=== PATIENT | female | born 1930 | race Caucasian/White ===

== ENCOUNTER 2016-10-16 13:11 | Emergency (ER) | payer MEDICARE ==
[2016-10-16 14:45] LABS: APPEARANCE,URINE CLEAR (CLEAR); COLOR,URINE YELLOW (YELLOW); OCCULT BLOOD,URINE TRACE-INTACT (NEGATIVE); UROBILINOGEN URINE 0.2 Eu (0.2-1.0)
[2016-10-16 14:45] LABS: BASOPHILS % 0.1 (0.0-1.5); EOSINOPHILS % 0.6 % (0.0-6.8); LYMPHOCYTES # 0.6 # k/uL (0.6-4.0); MEAN CORPUSCULAR HEMOGLOBIN 25.9 pg (28.0-34.0); MONOCYTES # 0.4 # k/uL (0.0-0.9); MONOCYTES % 4.8 % (0.0-11.0); NEUTROPHILS # 7.4 # k/uL (1.4-7.7)
[2016-10-16 15:01] LABS: eGFR (African) > 60; eGFR (Non-African) > 60
--- NOTE | 2016-10-16 15:23 | ED Physician Documentation ---
Dyspnea - HISTORIAN Historian: patient - HPI Stated Complaint: cough, congestion, SOA Chief Complaint: Dyspnea Onset: days ago (3) Duration: continues in ED Initiating Event: upper respiratory illness Severity: moderate Exacerbated By: exertion, coughing Associated Symptoms: chest discomfort. denies: chills, fever Further Comments: yes (86 year old female patient presents with complaints of cough, SOB with exerction and chest discomfort with coughing for the past 3 days, states her ankles are swollen "they are always like that".) - ROS CONST: weakness EYES/ENT: nasal congestion GI/: denies: abdominal pain, vomiting, nausea, diarrhea, black stools NEURO/PSYCH: headache MS/SKIN/LYMPH: none - PAST HX Lung Disease: none PE Risk Factors: hypertension Surgeries/Procedures: hysterectomy, other (tonsilectomy, ) Other History: other (Hx of Breast cancer, GERD, OA, AV malformation, c-spine fracture) Allergies/Adverse Reactions: Allergies Allergy/AdvReac Type Severity Reaction Status Date / Time iodine [Iodine] Allergy Intermediate Rash Verified 10/16/16 14:07 Penicillins Allergy Intermediate Rash Verified 10/16/16 14:07 prednisone Allergy Intermediate Chest Pain Verified 10/16/16 14:07 Home Medications: Ambulatory Orders Medication Instructions Recorded Benazepril HCl [Benazepril HCl] 40 mg PO DAILY 07/04/16 Celecoxib [Celecoxib] 200 mg PO DAILY 07/04/16 Hydrochlorothiazide 25 mg PO DAILY 07/04/16 [Hydrochlorothiazide] Omeprazole [Omeprazole] 20 mg PO BID 07/04/16 Tramadol HCl [Ultram] 50 mg PO TID 07/04/16 Ergocalciferol (Vitamin D2) 50,000 unit PO WEEKLY AT 1600 08/14/16 [Vitamin D-2] Oxycodone HCl [Oxycodone HCl] 5 mg PO PRN PRN 08/14/16 - SOCIAL HX Smoking History: non-smoker - FAMILY HX Family History: denies: none - VITAL SIGNS Vital Signs: Vital Signs Temp Pulse Resp BP Pulse Ox 98.2 F 84 18 132/75 96 10/16/16 13:30 10/16/16 13:30 10/16/16 13:30 10/16/16 13:30 10/16/16 13:30 - REVIEWED ASSESSMENTS Nursing Assessment Reviewed: Yes Vitals Reviewed: Yes Progress - Progress Progress: Patient in C-collar, C2 fracture 1530 Reviewed lab findings with patient and daughter. Additional orders added. Patient reports no history of CHF, has never had an echo-cardiogram. Recommended transfer for cardiac evaluation and treatment of CHF. Patient requested [facility]. Call to [facility]. - EKG/XRAY/CT EKG: rhythm (SR, rate 90) - Consult/PCP Time Called: 15:38 Consult/PCP: patient accepted by Dr Freitas ED Results Lab/Radiology - Lab Results Lab Results: Lab Results 10/16/16 10/16/16 10/16/16 14:10 14:10 13:18 WBC 8.60 K/ul K/ul (4.00-12.00) RBC 3.42 M/ul L M/ul (3.90-5.20) Hgb 8.9 g/dL L g/dL (12.0-16.0) Hct 28.9 % L % (34.5-46.5) MCV 84.4 fl fl (80.0-100.0) MCH 25.9 pg L pg (28.0-34.0) MCHC 30.7 g/dL g/dL (30.0-36.0) RDW 14.1 % % (11.3-14.3) Plt Count 300 K/mm3 K/mm3 (130-400) Neut % (Auto) 86.1 % H % (39.0-79.0) Lymph % (Auto) 7.4 % L % (16.0-50.0) [place] % (Auto) 4.8 % % (0.0-11.0) Eos % (Auto) 0.6 % % (0.0-6.8) Baso % (Auto) 0.1 (0.0-1.5) Neut # 7.4 # k/uL # k/uL (1.4-7.7) Lymph # 0.6 # k/uL # k/uL (0.6-4.0) [place] # 0.4 # k/uL # k/uL (0.0-0.9) Eos # 0.0 # k/uL # k/uL (0.0-0.6) Baso # 0.0 # k/uL # k/uL (0.0-0.5) Reactive Lymphs % 1.0 % % (0.0-5.0) Reactive Lymphs # 0.1 # k/uL # k/uL (0.0-0.8) Sodium 131 mmol/L L mmol/L (136-145) Potassium 4.7 mmol/L mmol/L (3.5-5.0) Chloride 97 mmol/L L mmol/L (98-110) Carbon Dioxide 26 mmol/L mmol/L (20-32) BUN 42 mg/dL H mg/dL (10-26) Creatinine 1.2 mg/dL mg/dL (0.4-1.5) Estimated Creat Clear 35 Est GFR ( Amer) > 60 (60 - ) Est GFR (Non-Af Amer) > 60 (60 - ) Glucose 136 mg/dL H mg/dL (70-99) Calcium 9.6 mg/dL mg/dL (8.5-10.5) Total Bilirubin 0.5 mg/dL mg/dL (0.2-1.2) AST 17 U/L U/L (0-41) ALT 21 U/L U/L (0-45) Alkaline Phosphatase 72 U/L U/L (46-116) Total Protein 6.5 g/dL g/dL (6.0-8.5) Albumin 4.1 g/dL g/dL (3.0-5.5) Urine Color Yellow (YELLOW) Urine Appearance Clear (CLEAR) Urine pH 5.0 (5.0 - 8.0) Ur Specific [place] <=1.005 L (1.010-1.030) Urine Protein Negative mg/dL mg/dL (NEGATIVE) Urine Ketones Negative mg/dL mg/dL (NEGATIVE) Urine Occult Blood Trace-intact H (NEGATIVE) Urine Nitrite Negative (NEGATIVE) Urine Bilirubin Negative (NEGATIVE) Urine Urobilinogen 0.2 Eu Eu (0.2-1.0) Ur Leukocyte Esterase Trace H (NEGATIVE) Urine Glucose Negative mg/dL mg/dL (NEGATIVE) Influenza A (Rapid) Negative (NEGATIVE) Influenza B (Rapid) Negative (NEGATIVE) - Radiology Radiology Impressions: 2 views the chest Clinical history: Cough Findings: The heart size is mildly enlarged. There is left basilar atelectasis and/or infiltrate with a possible small left pleural effusion. There is air trapping. There is a question nodular density in the right lower lobe. Comparison to prior is recommended. No pneumothorax. Impression: 1. Left basilar atelectasis and/or infiltrate with a questionable very small left pleural effusion. 2. Question right lower lobe nodular density. Comparison to prior recommended. - Orders Orders: ED Orders Category Date Time Status CHEST P.A.&LAT 2 VIEWS [RAD] Stat Exams 10/16/16 Ordered BNP [NT-proBNP] Stat Lab 10/16/16 15:05 Received CBC/PLATELET/DIFF Stat Lab 10/16/16 14:10 Completed CMP Stat Lab 10/16/16 14:10 Completed INFLUENZA A&B Routine Lab 10/16/16 13:18 Completed UA MACRO DIP ONLY Routine Lab 10/16/16 13:18 Completed Dyspnea Physical Exam - EXAM General Appearance: moderate distress EENT: eye inspection normal, ENT inspection normal, pharynx normal, no signs of dehydration, ALEJA, no nystagmus, TM's nml Respiratory: no resp. distress, no pain on inspiration, speaks full sentences, decreased air movement (bases) CVS: reg. rate & rhythm, no gallop, no friction rub, pulses full, pulses equal Abdomen: non-tender, no organomegaly, no distention, no ascites Skin: color nml, no rash, warm, nml palp., dry Extremities: non-tender, normal range of motion, no evidence of injury, edema (3 + left, 2+ right) Neuro/Psych: oriented x3, CN's nml as tested, motor nml, sensation nml, mood/ affect nml Discharge Clincal Impression: Elevated troponin I level CHF (congestive heart failure) Qualifiers: Congestive heart failure type: unspecified congestive heart failure type Congestive heart failure chronicity: acute Qualified Code(s): I50.9 - Heart failure, unspecified Anemia Qualifiers: Anemia type: unspecified type Qualified Code(s): D64.9 - Anemia, unspecified Referrals: Abdiaziz Llanes MD [Primary Care Provider] - 2 Days Home Medications: Ambulatory Orders Benazepril HCl [Benazepril HCl] 40 mg PO DAILY 07/04/16 Celecoxib [Celecoxib] 200 mg PO DAILY 07/04/16 Hydrochlorothiazide [Hydrochlorothiazide] 25 mg PO DAILY 07/04/16 Omeprazole [Omeprazole] 20 mg PO BID 07/04/16 Tramadol HCl [Ultram] 50 mg PO TID 07/04/16 Ergocalciferol (Vitamin D2) [Vitamin D-2] 50,000 unit PO WEEKLY AT 1600 Oxycodone HCl [Oxycodone HCl] 5 mg PO PRN PRN 08/14/16 Condition: Fair Disposition: XFER SHT-TRM HOSP Decision to Admit: NO Decision Time: 15:56
[2016-10-16] MEDS ORDERED: FUROSEMIDE 40 MG/4 ML VIAL IVP ONE (15:33)
[2016-10-16] MEDS ORDERED: ASPIRIN 81 MG CHEW TAB PO ONE (16:09)
[2016-10-16] MEDS ORDERED: ASPIRIN 81 MG CHEW TAB ONE (16:10)
[2016-10-16 16:21] VITALS: BP 135/87
--- NOTE | 2016-10-16 18:28 | Diagnostic Imaging Report ---
~ [facility] [address] [facility].[address] [address] ~ ~ ~ ~ Report Submission Date: Oct 16, 2016 3:00:08 PM SR. OPERATIONS MANAGER Patient ~ Study Name: JACK VIVAR ~ Date: Oct 16, 2016 2:34:40 PM SR. OPERATIONS MANAGER ~ Modality Type: CR Gender: F ~ Description: CHEST : [birth year] ~ Institution: [facility] Physician: TORRES SOLIS ~ ~ ~ ~ 2 views the chest Clinical history: Cough Findings: The heart size is mildly enlarged. There is left basilar atelectasis and/or infiltrate with a possible small left pleural effusion. There is air trapping. There is a question nodular density in the right lower lobe. Comparison to prior is recommended. No pneumothorax. Impression: 1. Left basilar atelectasis and/or infiltrate with a questionable very small left pleural effusion. 2. Question right lower lobe nodular density. Comparison to prior recommended. ~ Electronically signed on Oct 16, 2016 3:00:08 PM SR. OPERATIONS MANAGER by: Gennaro LUDWIG
== END 2016-10-16 16:19 | disposition short-term general hospital (02) ==
LOC: ED 13:11
DX: I50.9 Heart failure, unspecified (principal); D64.9 Anemia, unspecified
CPT/HCPCS: 71020; 80053; 81002; 82550; 83880; 84484; 85025; 87400; J1940; 99283; 99284; S1016

== ENCOUNTER 2016-12-18 09:19 | Emergency (ER) | payer MEDICARE ==
--- NOTE | 2016-12-18 10:15 | Diagnostic Imaging Report ---
[facility] [address] [facility].[address] [address] Report Submission Date: Dec 18, 2016 10:07:02 AM CDT Patient Study Name: JACK VIVAR Date: Dec 18, 2016 9:52:06 AM CDT Modality Type: CR Gender: F Description: CHEST : [birth year] Institution: [facility] Physician: WAQAR LAYNE - ER 2 views the chest Clinical history: Short of breath Findings: Heart size is mildly enlarged. There is unchanged scarring in the lung bases. No pleural effusion, pneumothorax or alveolar consolidation. Impression: No acute disease in the chest Electronically signed on Dec 18, 2016 10:07:02 AM CDT by: Gennaro LUDWIG
[2016-12-18] MEDS ORDERED: cefTRIAXone SODIUM 1 GM VIAL IM ONE (10:42)
[2016-12-18] MEDS ORDERED: BENZONATATE 100 MG CAPSULE PO ONE (10:42)
[2016-12-18] MEDS ORDERED: Lidocaine 1% 5ml(IM or SUTURE)(PAIN CLINIC) IJ ONE (10:43)
--- NOTE | 2016-12-18 10:48 | ED Physician Documentation ---
Upper Respiratory Symptoms - HISTORIAN Historian: patient - HPI Stated Complaint: cough, shortness of breath Chief Complaint: Cough/ Upper Respiratory Additional Information: nonproductive cough, no fever, x 1 week Onset: days ago (7) Duration: sudden-Onset Context: denies: recent foreign travel, insect bite(s), tick(s), recent chemotherapy, multiple patients, same sx Severity: moderate Associated Symptoms: other (blood left nare). denies: fever, chills, sweating, earache, runny nose, sinus pain, sinus drainage, sore throat, hoarseness, allergy, hay fever, chest pain, bloody cough, productive cough, shortness of breath, hurts to breathe, headache Worsened by Deep Breath: Yes Further Comments: no - ROS CONST/EYES: denies: weakness, eye redness, eye itching CVS/RESP: other (dry cough) LYMPH: leg swelling (chronic problem for this pt.) GI/: denies: abdominal pain, problems urinating, vomiting, nausea, diarrhea, black stools NEURO/PSYCH: denies: fainting, dizziness, confusion, anxiety, depression MS/SKIN: denies: joint pain, muscle aches, rash - PAST HX Lung Disease: none PE Risk Factors: none Other History: CHF, hypertension, other (acute GA, CAD, GERD) Surgeries/Procedures: cardiac stent Immunizations: referred to PCP Allergies/Adverse Reactions: Allergies Allergy/AdvReac Type Severity Reaction Status Date / Time iodine [Iodine] Allergy Intermediate Rash Verified 12/18/16 09:53 Penicillins Allergy Intermediate Rash Verified 12/18/16 09:53 prednisone Allergy Intermediate Chest Pain Verified 12/18/16 09:53 Home Medications: Ambulatory Orders Medication Instructions Recorded Benazepril HCl [Benazepril HCl] 20 mg PO DAILY 07/04/16 Omeprazole [Omeprazole] 20 mg PO BID 07/04/16 Tramadol HCl [Ultram] 50 mg PO TID 07/04/16 Ergocalciferol (Vitamin D2) 50,000 unit PO WEEKLY AT 1600 08/14/16 [Vitamin D-2] Atorvastatin Calcium 80 mg PO 12/18/16 Benazepril HCl [Lotensin] 20 mg PO 12/18/16 Benzonatate [Tessalon] 200 mg PO TID #20 capsule 12/18/16 Cephalexin [Keflex] 1,000 mg PO BID #30 capsule 12/18/16 Cyclobenzaprine HCl [Flexeril] 5 mg PO QD 12/18/16 Furosemide [Lasix] 20 mg PO DAILY 12/18/16 Furosemide [Lasix] 20 mg PO PRN PRN 12/18/16 Guaifenesin [Mucinex] 600 12/18/16 Metoprolol Succinate [Toprol XL] 25 mg PO 12/18/16 Omeprazole [Prilosec] 20 mg PO 12/18/16 Polyethylene Glycol 3350 [Miralax] 17 gm PO 1100 12/18/16 Ticagrelor [Brilinta] 90 mg PO 12/18/16 - SOCIAL HX Smoking History: non-smoker Alcohol Use: none Drug Use: none - FAMILY HX Family History: no significant history - VITAL SIGNS Vital Signs: Vital Signs Temp Pulse Resp BP Pulse Ox 97.9 F 86 18 154/59 97 12/18/16 09:33 12/18/16 09:33 12/18/16 09:33 12/18/16 09:33 12/18/16 09:33 - REVIEWED ASSESSMENTS Nursing Assessment Reviewed: Yes Vitals Reviewed: Yes Progress - Results/Orders Results/Orders: cxr ordered - Progress Progress: pt. given 1 gram rocephin im and 200 mg tessalon perle p.o. in er Critical Care Note - Critical Care Note Total Time (mins): 0 ED Results Lab/Radiology - Lab Results Lab Results: none ordered - Radiology Radiology Impressions: cxr neg - Orders Orders: ED Orders Category Date Time Status CHEST 2 VIEW [CHEST P.A.&LAT 2 VIEWS] [RAD] Stat Exams 12/18/16 Completed Benzonatate [Tessalon] Med 12/18/16 10:42 Discontinued 200 mg PO NOW ONE Lidocaine 1% 5ml(IM or SUTURE) [Xylocaine] Med 12/18/16 10:43 Discontinued 50 mg IJ NOW ONE cefTRIAXone SODIUM [Rocephin] Med 12/18/16 10:42 Discontinued 1 gm IM NOW ONE Upper Respiratory Symptoms - EXAM General Appearance: alert, moderate distress EENT: eyes nml inspection, nml ENT inspection, lids & conjunct. nml, PERRL, ear nml Neck: normal inspection, thyroid normal, supple Respiratory: no resp. distress, speaks full sentences, rales (bases) Abdomen: non-tender, no organomegaly, nml bowel sounds, no distention CVS: reg rate & rhythm, heart sounds normal, equal pulses, no murmur Skin: color nml, no rash, warm,dry Extremities: non-tender, normal range of motion, no evidence of injury Neuro/Psych: oriented x3, neuro intact, mood/affect nml Discharge Clincal Impression: Bronchitis Prescriptions: Benzonatate [Tessalon] 200 mg PO TID #20 capsule Cephalexin [Keflex] 1,000 mg PO BID #30 capsule Referrals: Abdiaziz Llanes MD [Primary Care Provider] - 2 Days Home Medications: Ambulatory Orders Benazepril HCl [Benazepril HCl] 20 mg PO DAILY 07/04/16 Omeprazole [Omeprazole] 20 mg PO BID 07/04/16 Tramadol HCl [Ultram] 50 mg PO TID 07/04/16 Ergocalciferol (Vitamin D2) [Vitamin D-2] 50,000 unit PO WEEKLY AT 1600 Atorvastatin Calcium 80 mg PO 12/18/16 Benazepril HCl [Lotensin] 20 mg PO 12/18/16 Benzonatate [Tessalon] 200 mg PO TID #20 capsule 12/18/16 Cephalexin [Keflex] 1,000 mg PO BID #30 capsule 12/18/16 Cyclobenzaprine HCl [Flexeril] 5 mg PO QD 12/18/16 Furosemide [Lasix] 20 mg PO DAILY 12/18/16 Furosemide [Lasix] 20 mg PO PRN PRN 12/18/16 Guaifenesin [Mucinex] 600 12/18/16 Metoprolol Succinate [Toprol XL] 25 mg PO 12/18/16 Omeprazole [Prilosec] 20 mg PO 12/18/16 Polyethylene Glycol 3350 [Miralax] 17 gm PO 1100 12/18/16 Ticagrelor [Brilinta] 90 mg PO 12/18/16 Comments: medications as above Condition: Stable Disposition: 01 HOME, SELF-CARE Decision to Admit: NO Decision Time: 10:45
[2016-12-18 11:43] VITALS: BP 157/74
== END 2016-12-18 11:41 | disposition home or self-care (01) ==
LOC: ED 09:19
DX: J20.9 Acute bronchitis, unspecified (principal)
CPT/HCPCS: 71020; A9270; J0696; 96372; 99283

== ENCOUNTER 2016-12-28 12:34 | Inpatient (IN) | payer MEDICARE ==
[2016-12-28] MEDS ORDERED: ACETAMINOPHEN 325 MG TABLET PO PRN (13:28)
[2016-12-28] MEDS ORDERED: SALINE FLUSH 10 ML DISP.SYRIN IVF ONE ×2 (13:39→21:40)
[2016-12-28] MEDS: ENOXAPARIN SODIUM 30 MG/0.3 ML DISP.SYRIN SQ SCH (13:42)
[2016-12-28 14:04] LABS: BASOPHILS % 0.7 (0.0-1.5); EOSINOPHILS % 3.4 % (0.0-6.8); LYMPHOCYTES # 0.6 # k/uL (0.6-4.0); MEAN CORPUSCULAR HEMOGLOBIN 26.1 pg (28.0-34.0); MONOCYTES # 0.4 # k/uL (0.0-0.9); MONOCYTES % 4.8 % (0.0-11.0); NEUTROPHILS # 5.9 # k/uL (1.4-7.7)
[2016-12-28] MEDS: 0.9 % SODIUM CHLORIDE 1,000 ML IV SCH (14:07)
[2016-12-28 14:14] VITALS: BMI 23.5
--- NOTE | 2016-12-28 14:30 | Diagnostic Imaging Report ---
[facility] [address] [address] [facility] [address] [place] [address]. [id number] Report Submission Date: Dec 28, 2016 2:23:48 PM CDT Patient Study Name: JACK VIVAR Date: Dec 28, 2016 2:06:14 PM CDT Modality Type: CR Gender: F Description: CHEST : [birth year] Institution: [facility] Physician: [facility] Chest two views HISTORY: Cough and hypoxia FINDINGS: Cardiomegaly, pulmonary vascular congestion, low lung volumes, atherosclerosis, old right rib fracture deformities, advanced left shoulder arthropathy, and right axillary surgical clips are observed. Mild pulmonary edema cannot be excluded but the exam is limited by poor inspiratory effort. IMPRESSION: Suspect mild congestive heart failure. However, the exam is limited by poor inspiratory effort. Lung aeration has worsened since 12/18/2016. Electronically signed on Dec 28, 2016 2:23:48 PM CDT by: Myke LUDWIG
[2016-12-28] MEDS ORDERED: 0.9 % SODIUM CHLORIDE 250 ML IV ONE (15:46)
[2016-12-28] MEDS: IPRATROPIUM/ALBUTEROL SULFATE 3 ML AMPUL.NEB NEB SCH ×2 (15:57→21:11)
[2016-12-28] MEDS ORDERED: ACETAMINOPHEN 325 MG TABLET PO ONE (17:03)
[2016-12-28] MEDS ORDERED: diphenhydrAMINE HCL 25 MG TABLET PO ONE (17:03)
[2016-12-28] MEDS: ATORVASTATIN CALCIUM 80 MG TABLET PO SCH (19:08)
[2016-12-28] MEDS: BRILINTA 90 MG PO SCH (19:08)
--- NOTE | 2016-12-28 20:09 | History and Physical Report ---
History of Present Illnes - History of Present Illness Reason for Visit: Dyspnea, cough History of Present Illness: This is an 86 year old female who presented to my office today with c/o cough/ dyspnea and a remarkable pallor. She has not noted any blood in her stools. She was seen in the office this last week, but she has not improved despite antibiotics. She has felt more and more weak and dyspneic with exertion. She denies any chest pain. It is of note that she had a stent placed about a month ago at [facility] due to an LAD stenosis. She had good post stent placement flow, but was not convinced that she felt much better. She has been on Brillinta since the stent was placed. - Past Medical History Cardiac: HTN BOND TRADER: Other (Carpal tunnel syndrome) Gastrointestinal: GERD Heme/Onc: Cancer (Breast) Musculoskeletal: Chronic low back pain (due to spinal stenosis), Osteoarthritis , Other (osteopenia) - Past Surgical History Past Surgical History: , Hysterectomy, Mastectomy, Tonsillectomy, Other (Carpal tunnel injection, lumbar JOSEFINA, PCI with stent) - Past Social History Smoke: No Alcohol: None Drugs: None Lives: Alone Domestic Violence: Negative - Health Maintenance Health Maintenance: Cholesterol Influenza Vaccine: Current for this Influenza Season Pneumonia Vaccine: Yes Resuscitation Status: Resusciation Status Resuscitation Status Full Code - Unable to Obtain History Unable to Obtain: No Review of Systems - Review of Systems Constitutional: Weakness, Malaise. negative: Fever, Chills, Sweats Eyes: negative: pain ENT: negative: Ear Pain, Ear Discharge Respiratory: Cough, Shortness of Breath, SOB with Excertion. negative: Hemoptysis Cardiovascular: negative: Chest Pain, Palpitations Gastrointestinal: negative: Nausea, Vomiting, Abdominal Pain Genitourinary: negative: Dysuria, Frequency Musculoskeletal: negative: Neck Pain, Shoulder Pain Skin: Other (Pallor). negative: Rash, Lesions, Jaundice Neurological: Weakness. negative: Confusion - Medications/Allergies Allergies/Adverse Reactions: Allergies Allergy/AdvReac Type Severity Reaction Status Date / Time iodine [Iodine] Allergy Intermediate Rash Verified 12/18/16 09:53 Penicillins Allergy Intermediate Rash Verified 12/18/16 09:53 prednisone Allergy Intermediate Chest Pain Verified 12/18/16 09:53 Current Inpatient Medications: Current Inpatient Medications Acetaminophen (Tylenol) 650 mg PO Q4H PRN PRN Reason: Fever >101 Acetaminophen (Tylenol) 650 mg PO PREMED ONE Stop: 12/28/16 17:04 Last Admin: 12/28/16 17:16 Dose: 650 mg Albuterol/Ipratropium (Duoneb) 3 ml NEB QID [facility] Last Admin: 12/28/16 15:57 Dose: 3 ml Atorvastatin Calcium (Lipitor) 80 mg PO HS [facility] Last Admin: 12/28/16 19:08 Dose: 80 mg Diphenhydramine HCl (Benadryl) 25 mg PO PREMED ONE Stop: 12/28/16 17:04 Last Admin: 12/28/16 17:18 Dose: 25 mg Enoxaparin Sodium (Lovenox) 30 mg SQ QD [facility] Stop: 01/10/17 14:01 Last Admin: 12/28/16 13:42 Dose: 30 mg Furosemide (Lasix) 10 mg IVP NOW ONE Stop: 12/28/16 15:10 Sodium Chloride (Normal Saline) 1,000 mls @ 100 mls/hr IV Q10H [facility] Last Admin: 12/28/16 14:07 Dose: 100 mls/hr Miscellaneous (Patient Own Med) 1 each PO BID [facility] Last Admin: 12/28/16 19:08 Dose: 1 each Pantoprazole Sodium (Protonix) 40 mg PO 0700 [facility] Exam - Exam Vital Signs: Vital Signs (72 hours) 12/28/16 12/28/16 12:42 18:00 Temperature 96.7 F L 98.5 F Pulse Rate [ 74 76 Left] Respiratory 20 20 Rate Blood Pressure 129/62 129/62 [Left Arm] O2 Sat by Pulse 97 97 Oximetry General: Alert (Pleasant oriented 86 year old female who appears very pale), Oriented to Person, Oriented to Place, Cooperative, Thin HEENT: Atraumatic, PERRLA, EOMI, Mouth Mucous membr. moist/[place] Neck: No: Stridor, Rigidity, Normal Range of Motion (wearing collar) Lungs: Wheezes, Prolonged Expiration Cardiovascular: Regular rate, Normal S1, Normal S2 Murmur: Systolic Murmur Murmur Location: Left Sternal Boarder Heart Murmur Grade: II Abdomen: Normal bowel sounds, Soft, No tenderness Genitourinary: No: Right Inguinal Hernia, Left Inguinal Hernia Male Genitourinary: No: Other Female Genitourinary: No: Prolapse Integumentary: Pale Extremities: No clubbing, No cyanosis, No edema Neurological: Normal speech, Strength Equal Bilat, Generalized Weakness Psych/Mental Status: Mental status NL - Laboratory Results Laboratory Results: Laboratory Results 12/28/16 12/28/16 13:50 13:50 WBC 7.30 RBC 2.75 L Hgb 7.2 L Hct 23.3 L MCV 84.7 MCH 26.1 L MCHC 30.8 RDW 16.5 H Plt Count 280 Neut % (Auto) 81.2 H Lymph % (Auto) 8.6 L [place] % (Auto) 4.8 Eos % (Auto) 3.4 Baso % (Auto) 0.7 Neut # 5.9 Lymph # 0.6 [place] # 0.4 Eos # 0.2 Baso # 0.0 Reactive Lymphs % 1.3 Reactive Lymphs # 0.1 Sodium 137 Potassium 4.0 Chloride 103 Carbon Dioxide 25 BUN 44 H Creatinine 1.6 H Estimated Creat Clear 28 Est GFR ( Amer) 39 L Est GFR (Non-Af Amer) 32 L Glucose 107 H Calcium 10.0 Total Bilirubin 1.0 AST 22 ALT 21 Alkaline Phosphatase 104 Total Protein 7.5 Albumin 4.7 Assessment/Plan - Assessment/Plan (1) Anemia Status: Acute Current Visit: No Qualifiers: Anemia type: unspecified type Qualified Code(s): D64.9 - Anemia, unspecified Assessment: Admit for transfusion (2) CAD (coronary artery disease) Status: Acute Current Visit: Yes Assessment: No evidence of recurrent ischemia Plan: Continue Brillinta Continue atorvastatin at 80 mg daily (3) CHF (congestive heart failure) Status: Acute Current Visit: No Qualifiers: Congestive heart failure type: unspecified congestive heart failure type Congestive heart failure chronicity: acute Qualified Code(s): I50.9 - Heart failure, unspecified Assessment: Stable, will observe for fluid overload with transfusion (4) Dehydration Status: Acute Current Visit: Yes Assessment: Judicious rehydration (5) Renal failure Status: Acute Current Visit: Yes Assessment: I expect this will improve with hydration (6) Pneumonia Status: Acute Current Visit: Yes Qualifiers: Pneumonia type: due to unspecified organism Laterality: unspecified laterality Lung location: unspecified part of lung Qualified Code(s): J18.9 - Pneumonia, unspecified organism Comment: Clinical diagnosis, may not be evident due to dehydration Assessment: Recheck CXR in am VTE Assessment - RISK FACTOR SCORE VTE RISK FACTOR SCORES: AGE OVER 60 YEARS, ACUTE INFECTION OTHER THEN SEPSIS - RISK VTE MODERATE RISK: SCORE OF 2 (RISK PROXIMAL DVT 2-4%) PROPHYAXIS NEEDED (on lovenox and DENNIS hose)
[2016-12-28] MEDS: FUROSEMIDE 20 MG/2 ML VIAL IVP ONE (21:45)
[2016-12-28] MEDS ORDERED: guaiFENesin/CODEINE PHOS 30ML BOTTLE PO ONE (22:09)
[2016-12-28] MEDS: guaiFENesin DM 100 MG/10 MG/5 ML 118ML BOTTLE PO PRN (22:13)
[2016-12-29] MEDS ORDERED: SALINE FLUSH 10 ML DISP.SYRIN IVF ONE ×2 (00:55→14:24)
[2016-12-29] MEDS: FUROSEMIDE 20 MG/2 ML VIAL IVP ONE (01:10)
[2016-12-29] MEDS: IPRATROPIUM/ALBUTEROL SULFATE 3 ML AMPUL.NEB NEB SCH ×5 (01:10→20:44)
[2016-12-29] MEDS: PANTOPRAZOLE SODIUM 40 MG TABLET PO SCH (06:08)
[2016-12-29] MEDS: 0.9 % SODIUM CHLORIDE 1,000 ML IV SCH ×3 (06:09→19:26)
[2016-12-29 06:27] LABS: MEAN CORPUSCULAR HEMOGLOBIN 26.3 pg (28.0-34.0)
[2016-12-29] MEDS: BRILINTA 90 MG PO SCH ×2 (07:26→19:24)
[2016-12-29] MEDS: guaiFENesin DM 100 MG/10 MG/5 ML 118ML BOTTLE PO PRN (07:27)
--- NOTE | 2016-12-29 08:40 | Inpatient Progress Note ---
Subjective - Required Recertification Statement I anticipate X number of days because-include discharge plan: 1 - Review of Systems Events since last encounter: Maria De Jesus is improved today. She is still couging quite a bit, and her repeat chest x ray this morning shows small infiltrates that were not noted on her CXR yesterday. She remains afebrile. Her hemoglobin has increased from 7.2 on admit to General: Fatigue. Denies: Chills HEENT: Denies: Head Aches, Visual Changes Pulmonary: Dyspnea, Cough Cardiovascular: Orthopnea. Denies: Chest Pain, Palpitations Gastrointestinal: Denies: Nausea, Vomiting Genitourinary: Denies: Dysuria, Frequency Musculoskeletal: Denies: Neck Pain, Shoulder Pain, Arm Pain Neurological: Weakness (improved) Objective - Exam Vitals and I&O: Vital Signs Temp 98.3 F 12/29/16 06:00 Pulse 83 12/29/16 06:00 Resp 18 12/29/16 06:00 BP 136/76 12/29/16 06:00 Pulse Ox 93 12/29/16 06:00 Intake & Output 12/28/16 12/28/16 12/29/16 11:59 23:59 11:59 Intake Total 120 650 Output Total 1400 Balance 120 -750 Weight 62.142 kg 60.328 kg Intake: Oral 120 Blood Product 650 Output: Urine 1400 Other: Voiding Method Toilet # Voids 0 # Bowel Movements 0 General: Alert, Oriented to Place, Oriented to Time, Cooperative HEENT: Atraumatic, PERRLA, EOMI Neck: Supple, No JVD Lungs: Wheezes, Prolonged Expiration, Decreased Air Movement Cardiovascular: Regular rate Abdomen: Normal bowel sounds, Soft Extremities: Other (1+ edema) Skin: Normal, [place] (not nearly as pale) Neurological: Normal speech Psych/Mental Status: Mental status NL - Results Results: Laboratory Results WBC 8.30 K/ul (4.00-12.00) 12/29/16 06:20 RBC 3.61 M/ul (3.90-5.20) L 12/29/16 06:20 Hgb 9.5 g/dL (12.0-16.0) L 12/29/16 06:20 Hct 31.2 % (34.5-46.5) L 12/29/16 06:20 MCV 86.3 fl (80.0-100.0) 12/29/16 06:20 MCH 26.3 pg (28.0-34.0) L 12/29/16 06:20 MCHC 30.4 g/dL (30.0-36.0) 12/29/16 06:20 RDW 16.1 % (11.3-14.3) H 12/29/16 06:20 Plt Count 271 K/mm3 (130-400) 12/29/16 06:20 Neut % (Auto) 81.2 % (39.0-79.0) H 12/28/16 13:50 Lymph % (Auto) 8.6 % (16.0-50.0) L 12/28/16 13:50 [place] % (Auto) 4.8 % (0.0-11.0) 12/28/16 13:50 Eos % (Auto) 3.4 % (0.0-6.8) 12/28/16 13:50 Baso % (Auto) 0.7 (0.0-1.5) 12/28/16 13:50 Neut # 5.9 # k/uL (1.4-7.7) 12/28/16 13:50 Lymph # 0.6 # k/uL (0.6-4.0) 12/28/16 13:50 [place] # 0.4 # k/uL (0.0-0.9) 12/28/16 13:50 Eos # 0.2 # k/uL (0.0-0.6) 12/28/16 13:50 Baso # 0.0 # k/uL (0.0-0.5) 12/28/16 13:50 Reactive Lymphs % 1.3 % (0.0-5.0) 12/28/16 13:50 Reactive Lymphs # 0.1 # k/uL (0.0-0.8) 12/28/16 13:50 Sodium 140 mmol/L (136-145) 12/29/16 06:20 Potassium 4.0 mmol/L (3.5-5.0) 12/29/16 06:20 Chloride 105 mmol/L (98-110) 12/29/16 06:20 Carbon Dioxide 25 mmol/L (20-32) 12/29/16 06:20 BUN 40 mg/dL (10-26) H 12/29/16 06:20 Creatinine 1.5 mg/dL (0.4-1.5) 12/29/16 06:20 Estimated Creat Clear 29 12/29/16 06:20 Est GFR ( Amer) 42 (60-) L 12/29/16 06:20 Est GFR (Non-Af Amer) 35 (60-) L 12/29/16 06:20 Glucose 102 mg/dL (70-99) H 12/29/16 06:20 Calcium 9.6 mg/dL (8.5-10.5) 12/29/16 06:20 Total Bilirubin 1.0 mg/dL (0.2-1.2) 12/28/16 13:50 AST 22 U/L (0-41) 12/28/16 13:50 ALT 21 U/L (0-45) 12/28/16 13:50 Alkaline Phosphatase 104 U/L (46-116) 12/28/16 13:50 Total Protein 7.5 g/dL (6.0-8.5) 12/28/16 13:50 Albumin 4.7 g/dL (3.0-5.5) 12/28/16 13:50 Assessment/Plan - Assessment/Plan (1) Anemia Status: Acute Current Visit: No Qualifiers: Anemia type: unspecified type Qualified Code(s): D64.9 - Anemia, unspecified Assessment: Improved after transfusion (2) CAD (coronary artery disease) Status: Acute Current Visit: Yes Assessment: no evidence of recurrent ischemia Plan: Recheck CBC in am (3) CHF (congestive heart failure) Status: Acute Current Visit: No Qualifiers: Congestive heart failure type: unspecified congestive heart failure type Congestive heart failure chronicity: acute Qualified Code(s): I50.9 - Heart failure, unspecified Assessment: restart PO lasix (4) Dehydration Status: Acute Current Visit: Yes Assessment: improved (5) Renal failure Status: Acute Current Visit: Yes (6) Pneumonia Status: Acute Current Visit: Yes Qualifiers: Pneumonia type: due to unspecified organism Laterality: unspecified laterality Lung location: unspecified part of lung Qualified Code(s): J18.9 - Pneumonia, unspecified organism Comment: Clinical diagnosis, may not be evident due to dehydration Assessment: Start ceftriaxone and azithromycin
[2016-12-29] MEDS ORDERED: 0.9 % SODIUM CHLORIDE 50 ML IV ONE (08:59)
[2016-12-29] MEDS ORDERED: cefTRIAXone SODIUM ADVANTAGE 1 GM VIAL.PORT IV ONE (09:00)
[2016-12-29] MEDS: METOPROLOL SUCCINATE 50 MG TAB.ER.24H PO SCH (09:09)
[2016-12-29] MEDS: AZITHROMYCIN 250 MG TABLET PO SCH (09:10)
[2016-12-29] MEDS: LISINOPRIL 5 MG TABLET PO SCH (09:11)
[2016-12-29] MEDS: FUROSEMIDE 40 MG TABLET PO SCH (09:12)
[2016-12-29] MEDS: cefTRIAXone SODIUM 1 GM in 0.9 % SODIUM CHLORIDE 50 ML IV SCH (09:13)
--- NOTE | 2016-12-29 10:19 | Diagnostic Imaging Report ---
DANY DOLL [facility] [address] [facility] [address] [address] Report Submission Date: Dec 29, 2016 7:19:13 AM CDT Patient Study Name: JACK VIVAR Date: Dec 29, 2016 6:42:49 AM CDT Modality Type: CR Gender: F Description: CHEST : [birth year] Institution: [facility] Physician: DANY DOLL 2 views of the chest History: Cough, wheezing Findings: Comparison: December 28, 2016 Cardiomegaly with aortic calcification again noted Emphysema Pulmonary vascular congestion persists, bibasilar opacities and chronic interstitial lung changes are persistent Right midlung atelectasis Extensive degenerative changes both shoulders, worse on the left Demineralized bones Impression: Cardiomegaly and pulmonary vascular congestion/ edema persist without significant change Bibasilar stable atelectasis/ infiltrates. Emphysema. Patchy atelectasis right mid lung Electronically signed on Dec 29, 2016 7:19:13 AM CDT by: Gabby LUDWIG
[2016-12-29] MEDS: ENOXAPARIN SODIUM 30 MG/0.3 ML DISP.SYRIN SQ SCH (14:17)
[2016-12-29] MEDS: ATORVASTATIN CALCIUM 80 MG TABLET PO SCH (19:24)
[2016-12-30] MEDS: guaiFENesin DM 100 MG/10 MG/5 ML 118ML BOTTLE PO PRN (01:33)
[2016-12-30] MEDS: PANTOPRAZOLE SODIUM 40 MG TABLET PO SCH (06:21)
[2016-12-30] MEDS: 0.9 % SODIUM CHLORIDE 1,000 ML IV SCH (06:42)
[2016-12-30 06:43] LABS: MEAN CORPUSCULAR HEMOGLOBIN 26.3 pg (28.0-34.0)
[2016-12-30] MEDS ORDERED: cefTRIAXone SODIUM 1 GM VIAL ONE (08:37)
[2016-12-30] MEDS ORDERED: 0.9 % SODIUM CHLORIDE 50 ML IV ONE (08:37)
[2016-12-30] MEDS: cefTRIAXone SODIUM 1 GM in 0.9 % SODIUM CHLORIDE 50 ML IV SCH (09:11)
[2016-12-30] MEDS ORDERED: SALINE FLUSH 10 ML DISP.SYRIN IVF ONE (09:11)
[2016-12-30] MEDS: BRILINTA 90 MG PO SCH (09:20)
[2016-12-30] MEDS: FUROSEMIDE 40 MG TABLET PO SCH (09:20)
[2016-12-30] MEDS: METOPROLOL SUCCINATE 50 MG TAB.ER.24H PO SCH (09:21)
[2016-12-30] MEDS: LISINOPRIL 5 MG TABLET PO SCH (09:21)
[2016-12-30] MEDS: AZITHROMYCIN 250 MG TABLET PO SCH (09:22)
[2016-12-30] MEDS: IPRATROPIUM/ALBUTEROL SULFATE 3 ML AMPUL.NEB NEB SCH ×2 (09:43→13:39)
[2016-12-30 13:01] VITALS: BP 131/54
[2016-12-30] MEDS: ENOXAPARIN SODIUM 30 MG/0.3 ML DISP.SYRIN SQ SCH (13:40)
--- NOTE | 2016-12-31 09:30 | Discharge Summary ---
DATE OF ADMISSION: December 28, 2016 DATE OF DISCHARGE: December 30, 2016 DIAGNOSES ON THIS HOSPITALIZATION: 1. Blood loss anemia. 2. Congestive heart failure. 3. Pneumonia. 4. Acute renal failure. 5. Dehydration. 6. Atherosclerotic coronary vascular disease. 7. Recent C2 cervical fracture. SUMMARIZATION OF ADMISSION HISTORY AND PHYSICAL: This is an 86-year-old female who has actually had a very eventful last few months. She has had a C2 fracture and is currently wearing a collar for that. She has also had an OH and had to have a PCI with stent placement and after that , she was placed on Brilinta. Over the last few days, she has been having quite a bit of cough and also has been very weak and has marked dyspnea on exertion. When her initial blood work was done, no clear infiltrate was seen on the initial chest x-ray; however, with some hydration, she did show some very small bibasilar infiltrates. In addition, her hemoglobin was noted to be 7.2. As a result, she was transfused 2 units of packed red blood cells and the next morning, her hemoglobin had come up from 7.2 to 9.5 and it was essentially stable. The next day, this morning, it was 9.3. She actually slowly improved and primarily had a complaint of cough. She responded well to nebulizer treatments but she does not feel like she can go home but she does not qualify for further days at the hospital on acute, nor has she had 3 midnights for a skilled stay; therefore, she will be transferred to [facility] on the following medications. MEDICATIONS ON DISCHARGE: 1. Brilinta 90 mg p.o. b.i.d. 2. Atorvastatin 80 mg p.o. daily. 3. Cefuroxime 250 mg 1 p.o. b.i.d. for 5 days. 4. Azithromycin 250 mg p.o. daily x4 days. 5. DuoNeb 1 vial q.i.d. 6. Promethazine DM 10 mL p.o. every 4 hours p.r.n. cough. 7. Lasix 40 mg p.o. daily. 8. Metoprolol succinate 25 mg p.o. daily. 9. Omeprazole 40 mg p.o. daily. DISCHARGE INSTRUCTIONS: She will have a physical therapy consult. She is on room air, so she will not need any oxygen but send a prescription for the cefuroxime and azithromycin, DuoNeb, and promethazine DM to [facility], as well as a prescription is provided to be sent to [facility] for a nebulizer. The plan was discussed with the patient and her daughter, Olive. OZIEL
== END 2016-12-30 14:28 | DRG 682 ==
LOC: SOUTH 12:34 → OBSVTOIN 12:34
PROVIDERS: ADMIT Family Medicine; ATTEND Family Medicine
DX: N17.9 Acute kidney failure, unspecified (principal); J18.9 Pneumonia, unspecified organism; D64.9 Anemia, unspecified; I25.10 Atherosclerotic heart disease of native coronary artery without angina pectoris; I50.9 Heart failure, unspecified; E86.0 Dehydration
CPT/HCPCS: 36415; 71020; 80048; 80053; 85025; 85027; 86885; 86900; 86901; 86920; 94640; 94760; 99223; 99232; 99238; J0696; J1650; J1940; J7050; P9040; J7030; Q0163; S1016

== ENCOUNTER 2016-12-30 14:28 | Inpatient (IN) | payer SELFPAY ==
[2016-12-30 13:01] VITALS: BP 131/54
== END 2017-01-01 15:20 | disposition home or self-care (01) | DRG 93 ==
LOC: ICF 14:28
PROVIDERS: ADMIT Family Medicine; ATTEND Family Medicine
DX: R26.9 Unspecified abnormalities of gait and mobility (principal)

== ENCOUNTER 2017-01-14 09:33 | Outpatient (CLI) | payer MEDICARE ==
[2017-01-14 09:47] LABS: BASOPHILS % 0.7 (0.0-1.5); EOSINOPHILS % 4.9 % (0.0-6.8); MEAN CORPUSCULAR HEMOGLOBIN 26.5 pg (28.0-34.0); MEAN CORPUSCULAR VOLUME 87.4 fl (80.0-100.0); MONOCYTES % 3.9 % (0.0-11.0); NEUTROPHILS # 5.1 # k/uL (1.4-7.7)
== END 2017-01-14 09:34 ==
LOC: LAB 09:33
PROVIDERS: ATTEND Family Medicine
DX: D64.9 Anemia, unspecified (principal)
CPT/HCPCS: 36415; 85025

== ENCOUNTER 2017-03-01 11:53 | Outpatient (CLI) | payer MEDICARE | END 2017-03-01 11:54 | LOC: CARD 11:53 | PROVIDERS: ATTEND Internal Medicine Cardiovascular Disease | DX: I25.10 Atherosclerotic heart disease of native coronary artery without angina pectoris (principal); I10 Essential (primary) hypertension; E78.5 Hyperlipidemia, unspecified; N18.3 Chronic kidney disease, stage 3 (moderate) | CPT/HCPCS: G0463 ==

== ENCOUNTER 2017-05-17 13:21 | Outpatient (CLI) | payer MEDICARE | END 2017-05-17 14:03 | LOC: CARD 13:21 | PROVIDERS: ATTEND Internal Medicine Cardiovascular Disease | DX: I25.10 Atherosclerotic heart disease of native coronary artery without angina pectoris (principal); I34.0 Nonrheumatic mitral (valve) insufficiency; I10 Essential (primary) hypertension; E78.5 Hyperlipidemia, unspecified; N18.3 Chronic kidney disease, stage 3 (moderate) | CPT/HCPCS: G0463 ==

== ENCOUNTER 2017-09-13 13:47 | Outpatient (CLI) | payer MEDICARE | END 2017-09-13 13:55 | LOC: CARD 13:47 | PROVIDERS: ATTEND Internal Medicine Cardiovascular Disease | DX: I25.10 Atherosclerotic heart disease of native coronary artery without angina pectoris (principal); I35.0 Nonrheumatic aortic (valve) stenosis; I34.0 Nonrheumatic mitral (valve) insufficiency; I10 Essential (primary) hypertension; E78.5 Hyperlipidemia, unspecified; N18.3 Chronic kidney disease, stage 3 (moderate) | CPT/HCPCS: G0463 ==

== ENCOUNTER 2017-10-21 11:26 | Outpatient (CLI) | payer MEDICARE ==
[2017-10-21 11:52] LABS: APPEARANCE,URINE Clear (CLEAR); COLOR,URINE Yellow (YELLOW); OCCULT BLOOD,URINE Negative (NEGATIVE)
[2017-10-21 11:57] LABS: BASOPHILS % 1.2 (0.0-1.5); EOSINOPHILS % 3.4 % (0.0-6.8); MEAN CORPUSCULAR VOLUME 80.7 fl (80.0-100.0); MONOCYTES % 4.6 % (0.0-11.0); NEUTROPHILS # 4.6 # k/uL (1.4-7.7)
[2017-10-21 12:09] LABS: MEAN CORPUSCULAR HEMOGLOBIN 22.3 pg (28.0-34.0)
[2017-10-21 12:21] LABS: eGFR (African) 42; eGFR (Non-African) 35
--- NOTE | 2017-10-21 12:42 | Diagnostic Imaging Report ---
DANY DOLL [facility] [address] [facility] [address] [address] Report Submission Date: Oct 21, 2017 12:07:17 PM HONEY PROCESSOR Patient Study Name: JACK VIVAR Date: Oct 21, 2017 11:54:42 AM HONEY PROCESSOR Modality Type: CR Gender: F Description: CHEST : [birth year] Institution: [facility] Physician: DANY DOLL Examination: PA and lateral chest. History: Evaluate lung keller. Comparison exam: 29 December 2016 Findings: PA lateral chest demonstrate a prominent cardiac and mediastinal silhouette. Vascular calcifications involving the aortic arch and aortic valve. Chronic interstitial changes. Diffuse interstitial prominence. Flattening of the diaphragm and lateral view. Osseous structures demonstrate degenerative. Impression: Diffuse chronic interstitial changes. Interstitial prominence suggesting increased volume status /congestive failure. Correlate clinically. Electronically signed on Oct 21, 2017 12:07:17 PM HONEY PROCESSOR by: Homar LUDWIG
[2017-10-21] MEDS ORDERED: SALINE FLUSH 10 ML DISP.SYRIN IVF ONE (13:11)
[2017-10-21] MEDS ORDERED: 0.9 % SODIUM CHLORIDE 100 ML IV ONE (13:20)
[2017-10-21] MEDS ORDERED: ACETAMINOPHEN 325 MG TABLET ONE ×2 (13:20→17:58)
[2017-10-21] MEDS ORDERED: diphenhydrAMINE HCL 25 MG TABLET PO ONE ×2 (13:20→17:59)
[2017-10-21 13:21] LABS: HYPOCHROMASIA 3+ (NEGATIVE)
[2017-10-21] MEDS: diphenhydrAMINE HCL 25 MG TABLET PO SCH ×2 (13:40→18:00)
[2017-10-21] MEDS: ACETAMINOPHEN 325 MG TABLET PO SCH ×2 (13:40→18:00)
[2017-10-21] MEDS ORDERED: NORMAL SALINE 500 ML IV.SOLN IV ONE (13:42)
[2017-10-21] MEDS: FUROSEMIDE 20 MG/2 ML VIAL IVP SCH ×2 (17:33→20:45)
[2017-10-21] MEDS ORDERED: FUROSEMIDE 20 MG/2 ML VIAL ONE ×2 (17:34→20:47)
[2017-10-22] MEDS ORDERED: ACETAMINOPHEN 500 MG TABLET ONE (01:40)
[2017-10-22 07:38] LABS: BASOPHILS % 0.9 (0.0-1.5); EOSINOPHILS % 4.5 % (0.0-6.8); MEAN CORPUSCULAR HEMOGLOBIN 24.8 pg (28.0-34.0); MEAN CORPUSCULAR VOLUME 80.2 fl (80.0-100.0); NEUTROPHILS # 5.7 # k/uL (1.4-7.7)
== END 2017-10-21 11:27 ==
LOC: LAB 11:26
PROVIDERS: ATTEND Family Medicine
DX: D64.9 Anemia, unspecified (principal); I10 Essential (primary) hypertension; R10.9 Unspecified abdominal pain; I50.42 Chronic combined systolic (congestive) and diastolic (congestive) heart failure; D50.0 Iron deficiency anemia secondary to blood loss (chronic)
CPT/HCPCS: 36415; 71020; 80053; 81002; 85025; 86885; 86900; 86901; 86920; J1940; Q0163; P9040; S1016

== ENCOUNTER 2017-10-31 16:46 | Outpatient (CLI) | payer MEDICARE ==
[2017-10-31 17:01] LABS: BASOPHILS % 1.1 (0.0-1.5); EOSINOPHILS % 3.9 % (0.0-6.8); MEAN CORPUSCULAR HEMOGLOBIN 25.5 pg (28.0-34.0); MEAN CORPUSCULAR VOLUME 87.2 fl (80.0-100.0); NEUTROPHILS # 3.1 # k/uL (1.4-7.7)
== END 2017-10-31 16:47 ==
LOC: LAB 16:46
PROVIDERS: ATTEND Family Medicine
DX: D50.0 Iron deficiency anemia secondary to blood loss (chronic) (principal)
CPT/HCPCS: 36415; 85025

== ENCOUNTER 2017-11-14 16:42 | Outpatient (CLI) | payer MEDICARE ==
[2017-11-14 17:09] LABS: APPEARANCE,URINE Clear (CLEAR); COLOR,URINE Yellow (YELLOW); OCCULT BLOOD,URINE Negative (NEGATIVE); UROBILINOGEN URINE 0.2 Eu (0.2-1.0)
[2017-11-14 17:10] LABS: EOSINOPHILS % 2.5 % (0.0-6.8); MEAN CORPUSCULAR HEMOGLOBIN 25.2 pg (28.0-34.0); MEAN CORPUSCULAR VOLUME 87.6 fl (80.0-100.0); MONOCYTES % 5.7 % (0.0-11.0); NEUTROPHILS # 5.9 # k/uL (1.4-7.7)
== END 2017-11-14 16:44 ==
LOC: LAB 16:42
PROVIDERS: ATTEND Family Medicine
DX: D50.0 Iron deficiency anemia secondary to blood loss (chronic) (principal); R32 Unspecified urinary incontinence
CPT/HCPCS: 36415; 81002; 85025

== ENCOUNTER 2018-05-02 06:03 | Inpatient (IN) | payer MEDICARE ==
--- NOTE | 2018-05-02 07:16 | ED Physician Documentation ---
General Adult - HISTORIAN Historian: patient - HPI Stated Complaint: fall yesterday rt hip and low back pain Chief Complaint: Low Back Pain/ Injury Additional Information: Patient states that she lost her balance and fell yesterday on her buttocks. Did not hit her back or head. Has some mild pain yesterday. Pain has gradually been getting worse sine that time. Having some numbness in her anterior and medial thigh this AM that lasted for a short period of time. Has a lot of pain with ambulation and weight bearing. Pain is better with resting and laying down. Last BM was yesterday. No trouble urinating. At this time is not able to ambulate due to pain. Timing: still present Severity: moderate Modifying Factors: movememnt - ROS CONST: no problems. denies: fever, chills CVS/RESP: none GI/: none MS/SKIN/LYMPH: back pain NEURO/PSYCH: tingling (in anterior to medial thigh this AM when whe tried to get up), difficulty walking. denies: difficulty with speech - PAST HX Past History: other (CAD, arthritis) Surgeries/Procedures: other (coranary stinting) Allergies/Adverse Reactions: Allergies Allergy/AdvReac Type Severity Reaction Status Date / Time iodine [Iodine] Allergy Intermediate Rash Verified 05/02/18 06:28 Penicillins Allergy Intermediate Rash Verified 05/02/18 06:28 prednisone Allergy Intermediate Chest Pain Verified 05/02/18 06:28 Home Medications: Ambulatory Orders Medication Instructions Recorded Ergocalciferol (Vitamin D2) 50,000 unit PO WEEKLY AT 1600 08/14/16 [Vitamin D-2] Furosemide [Lasix] 20 mg PO DAILY 12/18/16 Furosemide [Lasix] 20 mg PO PRN PRN 12/18/16 Polyethylene Glycol 3350 [Miralax] 17 gm PO 1100 12/18/16 Calcium Carbonate/Vitamin D3 1 each PO 10/21/17 [Os-Low 500+D3 [place]] - SOCIAL HX Smoking History: non-smoker Alcohol Use: none Drug Use: none - FAMILY HX Family History: Yes - VITAL SIGNS Vital Signs: Vital Signs Temp Pulse Resp BP Pulse Ox 98.4 F 77 18 100/73 96 05/02/18 06:05 05/02/18 06:05 05/02/18 06:05 05/02/18 06:05 05/02/18 06:05 ED Results Lab/Radiology - Orders Orders: ED Orders Category Date Time Status LUMBAR SPINE XR 2 OR 3 VIEWS [L SPINE 2 OR 3 VIEWS] [ Exams 05/02/18 Ordered RAD] Stat RT HIP 2VIEW COMPLETE [RAD] Stat Exams 05/02/18 Ordered General Adult Physical Exam - PHYSICAL EXAM GENERAL APPEARANCE: mild distress NECK: normal inspection, supple. No: lymphadenopathy RESPIRATORY: no resp distress, chest non-tender, breath sounds normal. No: wheezes, rales, rhonchi CVS: reg rate & rhythm, heart sounds normal, equal pulses, no murmur ABDOMEN: soft, no organomegaly, normal bowel sounds, no distension BACK: other (mild tenderness to the mid to lower lumbar area. ) SKIN: warm/dry, normal color EXTREMITIES: other (tender to palpation over the ishecial/sacral area down into the hip area. ) NEURO: oriented X3, CN's nml as tested, motor nml, sensation nml, mood/affect nml, cognition normal. No: sensory/motor deficit Discharge Clincal Impression: Fracture of pelvis Condition: Stable Disposition: ADMITTED INPATIENT Decision to Admit: [id number] Date of Decison to Admit: 05/02/18 Decision Time: 08:45
--- NOTE | 2018-05-02 08:31 | Diagnostic Imaging Report ---
[facility] [address] [facility].[address] [address] Report Submission Date: May 02, 2018 7:38:41 AM CDT Patient Study Name: JACK VIVAR Date: May 02, 2018 6:41:17 AM CDT Modality Type: DX Gender: F Description: PELVIS : [birth year] Institution: [facility] Physician: BENJAMIN RODARTE Right hip History: Status post fall AP and frogleg lateral projections of the right hip demonstrate mild irregularity along the inferior pubic ramus suggesting a nondisplaced and probably chronic fracture. There is no evidence for acute fracture or dislocation of the right hip. Bones are osteoporotic. Impression: Mild irregularity along the inferior pubic ramus suggesting a nondisplaced and probably chronic fracture in this location. No evidence for acute fracture or dislocation of the right hip. Osteoporosis. Electronically signed on May 02, 2018 7:38:41 AM CDT by: Roma LUDWIG
--- NOTE | 2018-05-02 08:32 | Diagnostic Imaging Report ---
[facility] [address] [facility].[address] [address] Report Submission Date: May 02, 2018 7:45:12 AM CDT Patient Study Name: JACK VIVAR Date: May 02, 2018 6:42:42 AM CDT Modality Type: DX Gender: F Description: SPINE : [birth year] Institution: [facility] Physician: BENJAMIN RODARTE Lumbar spine History: Status post fall AP and lateral projections of the lumbar spine demonstrate osteoporosis. There is extensive multilevel facet arthropathy. There is a severe and age- indeterminate compression fracture of L4 with approximately 70% loss of vertebral body height. There is additionally an age indeterminate compression fracture of L1 with 40-50% loss of vertebral body height. Aortic atherosclerosis is present. Impression: Osteoporosis. Compression fractures at L1 and L4 as described and indeterminate in age. Extensive, multilevel facet arthropathy. Aortic atherosclerosis. Electronically signed on May 02, 2018 7:45:12 AM CDT by: Roma LUDWIG
--- NOTE | 2018-05-02 08:41 | Diagnostic Imaging Report ---
[facility] [address] [facility] [address] [address] Report Submission Date: May 02, 2018 8:38:00 AM CDT Patient Study Name: JACK VIVAR Date: May 02, 2018 7:55:26 AM CDT Modality Type: DX Gender: F Description: PELVIS : [birth year] Institution: [facility] Physician: AUTUMN LOBO AP pelvis History: Pelvic pain status post fall AP view of the pelvis demonstrates a nondisplaced fracture of the right superior pubic ramus. The mild irregularity noted of the right inferior pubic rami and ramus on the hip radiographs is not as well visualized on this AP pelvis radiograph. The bones are quite osteoporotic. Impression: Acute, nondisplaced fracture involving the right inferior pubic ramus, far laterally in close proximity to the acetabulum, which actually retrospectively can also be visualized on the AP view of the lumbar spine obtained earlier on the same date. The mild irregularity of the inferior pubic ramus noted on the hip radiograph is not as apparent on this AP pelvis radiograph. Severe osteoporosis. Electronically signed on May 02, 2018 8:38:00 AM CDT by: Roma LUDWIG
--- NOTE | 2018-05-02 08:52 | Diagnostic Imaging Report ---
[facility] [address] [facility] [address] [place], [place]. [address] Report Submission Date: May 02, 2018 8:48:13 AM CDT Patient Study Name: JACK VIVAR Date: May 02, 2018 7:46:49 AM CDT Modality Type: CT\SR Gender: F Description: CT L-SPINE W/O CONTRAS : [birth year] Institution: [facility] Physician: AUTUMN LOBO CT lumbar spine without contrast History: Compression deformities noted on plain radiographs. Recent fall. Technique: Helically acquired images were obtained through the lumbar spine. Sagittal and coronal reconstructions were performed. Findings: The is multilevel facet arthropathy. As a result, there is a grade 1 anterolisthesis of L4 upon L5 measures at 6 mm. There is severe compression of the L4 vertebral body with an estimated 70% loss of vertebral body height. There is additionally compression deformity of L1 with an estimated 40% loss of vertebral body height. There is mild superior endplate compression of T12. Although no discrete fracture lines are identified by CT, these fractures remain technically age indeterminate. MRI would be the study of choice to determine if any of these compression deformities are acute. The bones are osteoporotic. Aortic atherosclerosis is present. Soft tissue assessment is limited but there does appear to be significant multifactorial central stenosis at both L3/4 and L4/5. MRI would be helpful in this regard as well. Impression: Compression deformities at L4, L1 and to a lesser degree at T12 as further detailed in the body of the report. Although no discrete fracture lines are evident by CT, these fractures remain technically age indeterminate. MRI would be the study of choice for further assessment in this regard. Multilevel vacuum disc phenomenon. Soft tissue assessment is limited but there does appear to be significant multifactorial central stenosis at L3/4 and L4/5. MRI would be helpful in this regard as well. Grade 1 anterolisthesis of L4 relative to L5 secondary to facet arthropathy. Aortic atherosclerosis. Electronically signed on May 02, 2018 8:48:13 AM CDT by: Roma LUDWIG
[2018-05-02] MEDS ORDERED: fentaNYL CITRATE/PF 100 MCG/ 2ML AMP IVP PRN (09:31)
[2018-05-02] MEDS: LISINOPRIL 20 MG TABLET PO SCH (10:56)
[2018-05-02] MEDS: ENOXAPARIN SODIUM 30 MG/0.3 ML DISP.SYRIN SQ SCH (10:56)
[2018-05-02] MEDS: METOPROLOL SUCCINATE 50 MG TAB.ER.24H PO SCH (10:56)
[2018-05-02] MEDS: POLYETHYLENE GLYCOL 3350 17 GM POWD.PACK PO SCH (10:56)
[2018-05-02 10:57] LABS: BASOPHILS % 0.6 (0.0-1.5); EOSINOPHILS % 2.1 % (0.0-6.8); MEAN CORPUSCULAR HEMOGLOBIN 27.4 pg (28.0-34.0); MEAN CORPUSCULAR VOLUME 88.2 fl (80.0-100.0); MONOCYTES % 5.1 % (0.0-11.0); NEUTROPHILS # 6.2 # k/uL (1.4-7.7)
[2018-05-02 11:12] LABS: eGFR (African) > 60; eGFR (Non-African) 41
[2018-05-02 12:23] VITALS: BMI 20.2
[2018-05-02] MEDS: traMADol HCL 50 MG TABLET PO PRN ×2 (13:00→20:48)
[2018-05-02] MEDS: CYCLOBENZAPRINE HCL 5 MG TABLET PO PRN ×2 (13:00→20:48)
[2018-05-02] MEDS ORDERED: 0.9 % SODIUM CHLORIDE 1,000 ML IV SCH (13:00)
--- NOTE | 2018-05-02 13:54 | History and Physical Report ---
History of Present Illnes - History of Present Illness Reason for Visit: Pelvic fracture History of Present Illness: Maria De Jesus had a fall yesterday outside her home and landed on her buttocks. A couple in a car came bv and were able to get her up and into her house. She awakened in the night to go to the bathroom, and could not toleate weight bearing. She eventually called family and they had her brought to the ER for evaluation. She has had some continued pain which is much worse with ambulation and minimally relieved with laying down. Her X rays in the ER showed that she had incurred a fracture of the right superior pubic ramus. She also has some right buttock pain also. - Past Medical History Cardiac: HTN OCCUP THER: Other (Carpal tunnel syndrome) Gastrointestinal: GERD Heme/Onc: Cancer (Breast) Musculoskeletal: Chronic low back pain (due to spinal stenosis), Osteoarthritis , Other (osteopenia) - Past Surgical History Past Surgical History: , Hysterectomy, Mastectomy, Tonsillectomy, Other (Carpal tunnel injection, lumbar JOSEFINA, PCI with stent) - Past Social History Smoke: No Alcohol: None Drugs: None Lives: Alone Domestic Violence: Negative - Health Maintenance Health Maintenance: Cholesterol Influenza Vaccine: Current for this Influenza Season Pneumonia Vaccine: Yes Resuscitation Status: Resusciation Status Resuscitation Status No Intubation/Mech Vent - Unable to Obtain History Unable to Obtain: No Review of Systems - Review of Systems Constitutional: negative: Fever, Chills Eyes: negative: pain ENT: negative: Ear Pain, Ear Discharge Respiratory: negative: Cough Cardiovascular: negative: Chest Pain Gastrointestinal: negative: Nausea, Vomiting Genitourinary: negative: Dysuria Musculoskeletal: Other (right anterior pelvic pain) Skin: negative: Rash, Lesions Neurological: Weakness. negative: Confusion - Medications/Allergies Allergies/Adverse Reactions: Allergies Allergy/AdvReac Type Severity Reaction Status Date / Time iodine [Iodine] Allergy Intermediate Rash Verified 05/02/18 06:28 Penicillins Allergy Intermediate Rash Verified 05/02/18 06:28 prednisone Allergy Intermediate Chest Pain Verified 05/02/18 06:28 Current Inpatient Medications: Current Inpatient Medications Aspirin (Aspirin) 81 mg PO DAILY [facility] Atorvastatin Calcium (Lipitor) 80 mg PO HS [facility] Calcium/Vitamin D (Oscal W/ Vitamin D 500mg/200iu) 1 each PO DAILY [facility] Cyclobenzaprine HCl (Flexeril) 5 mg PO QID PRN PRN Reason: muscle spasms Last Admin: 05/02/18 13:00 Dose: 5 mg Enoxaparin Sodium (Lovenox) 30 mg SQ QD [facility] Stop: 05/15/18 10:01 Last Admin: 05/02/18 10:56 Dose: 30 mg Ergocalciferol (Vitamin D2) 50,000 unit PO WEEKLY AT 1600 [facility] Fentanyl Citrate (Duragesic) 25 mcg IVP Q4 PRN PRN Reason: PAIN Furosemide (Lasix) 20 mg PO DAILY [facility] Sodium Chloride (Normal Saline) 1,000 mls @ 60 mls/hr IV .Q1H [facility] Lisinopril (Prinivil) 20 mg PO DAILY [facility] Last Admin: 05/02/18 10:56 Dose: 20 mg Metoprolol Succinate (Toprol Xl) 75 mg PO DAILY [facility] Last Admin: 05/02/18 10:56 Dose: 75 mg Polyethylene Glycol (Miralax) 17 gm PO 1100 [facility] Last Admin: 05/02/18 10:56 Dose: 17 gm Sodium Chloride (Normal Saline Flush) 3 ml IV BID [facility] Tramadol HCl (Ultram) 50 mg PO TID PRN PRN Reason: PAIN Last Admin: 05/02/18 13:00 Dose: 50 mg Exam - Exam Vital Signs: Vital Signs (72 hours) 05/02/18 05/02/18 09:11 09:35 Temperature 98.4 F 98.2 F Pulse Rate [ 77 85 Pulse ox] Respiratory 18 18 Rate Blood Pressure 177/78 178/90 [Right Arm] O2 Sat by Pulse 97 98 Oximetry General: Alert, Oriented to Person, Oriented to Place, Oriented to Time, Cooperative, Moderate distress (with movement) HEENT: Atraumatic, PERRLA Neck: No: Stridor, Rigidity Lungs: Clear to auscultation, Normal air movement, Speaks full Sentences Cardiovascular: Regular rate, Normal S1, Normal S2 Murmur: Systolic Murmur (II/ JACOB) Murmur Location: Left Sternal Boarder Abdomen: Normal bowel sounds, Soft, No tenderness Genitourinary: No: Other Male Genitourinary: No: Other Female Genitourinary: No: Other Integumentary: Normal, [place], Warm, Dry Extremities: No clubbing, No cyanosis, Other (2+ edema BLE) Neurological: Normal speech Psych/Mental Status: Mental status NL - Laboratory Results Laboratory Results: Laboratory Results 05/02/18 05/02/18 10:45 10:45 WBC 7.60 RBC 4.05 Hgb 11.1 L Hct 35.7 MCV 88.2 MCH 27.4 L MCHC 31.0 RDW 15.3 H Plt Count 184 Neut % (Auto) 81.5 H Lymph % (Auto) 9.8 L [place] % (Auto) 5.1 Eos % (Auto) 2.1 Baso % (Auto) 0.6 Neut # (Auto) 6.2 Lymph # (Auto) 0.7 [place] # (Auto) 0.4 Eos # (Auto) 0.2 Baso # (Auto) 0.0 Reactive Lymphs % 0.9 Reactive Lymphs # 0.1 Sodium 138 Potassium 3.7 Chloride 101 Carbon Dioxide 28 BUN 22 H Creatinine 1.30 H Estimated Creat Clear 29 Est GFR ( Amer) > 60 Est GFR (Non-Af Amer) 41 L Glucose 136 H Calcium 9.8 Total Bilirubin 0.8 AST 26 ALT 29 Alkaline Phosphatase 97 Total Protein 7.0 Albumin 3.8 Assessment/Plan - Assessment/Plan (1) Fracture of pelvis Status: Acute Current Visit: Yes Assessment: Right superior pubic ramus fracture Plan: Admit for pain control (2) Anemia Status: Acute Current Visit: No Qualifiers: Anemia type: unspecified type Qualified Code(s): D64.9 - Anemia, unspecified Assessment: Has been transfused in the past. Currently hemoglobin is stable (3) CAD (coronary artery disease) Status: Acute Current Visit: No Assessment: No evidence of ongoing ischemia (4) Dehydration Status: Acute Current Visit: No Assessment: Continue IVF VTE Assessment - RISK FACTOR SCORE VTE RISK FACTOR SCORES: AGE OVER 60 YEARS, ANTICIPATED BED CONFINEMENT OR IMMOBILIZATION > 24 HOURS - RISK VTE MODERATE RISK: SCORE OF 2 (RISK PROXIMAL DVT 2-4%) PROPHYAXIS NEEDED (On Lovenox)
[2018-05-02] MEDS ORDERED: ERGOCALCIFEROL (VITAMIN D2) 50,000 UNIT CAPSULE PO SCH (16:00)
[2018-05-02] MEDS: SALINE FLUSH 10 ML DISP.SYRIN IV SCH (20:19)
[2018-05-02] MEDS ORDERED: ATORVASTATIN CALCIUM 80 MG TABLET PO SCH (21:00)
[2018-05-03] MEDS ORDERED: FUROSEMIDE 20 MG TABLET PO ONE (00:48)
[2018-05-03] MEDS ORDERED: ASPIRIN 81 MG CHEW TAB ONE (00:48)
[2018-05-03] MEDS ORDERED: CALCIUM/VIT D 500MG/200IU TABLET ONE (00:51)
[2018-05-03] MEDS ORDERED: 0.9 % SODIUM CHLORIDE 1,000 ML IV SCH (03:30)
[2018-05-03] MEDS: METOPROLOL SUCCINATE 50 MG TAB.ER.24H PO SCH (08:35)
[2018-05-03] MEDS: LISINOPRIL 20 MG TABLET PO SCH (08:35)
[2018-05-03] MEDS: traMADol HCL 50 MG TABLET PO PRN ×2 (08:37→12:43)
[2018-05-03] MEDS ORDERED: CALCIUM/VIT D 500MG/200IU TABLET PO SCH (09:00)
[2018-05-03] MEDS ORDERED: FUROSEMIDE 20 MG TABLET PO SCH (09:00)
[2018-05-03] MEDS ORDERED: ASPIRIN 81 MG CHEW TAB PO SCH (09:00)
[2018-05-03] MEDS: ENOXAPARIN SODIUM 30 MG/0.3 ML DISP.SYRIN SQ SCH (10:08)
[2018-05-03] MEDS: POLYETHYLENE GLYCOL 3350 17 GM POWD.PACK PO SCH (11:08)
[2018-05-03] MEDS: SALINE FLUSH 10 ML DISP.SYRIN IV SCH (12:09)
[2018-05-03 13:25] VITALS: BP 117/55
--- NOTE | 2018-05-04 15:06 | Discharge Summary ---
DATE OF ADMISSION: May 02, 2018 DATE OF DISCHARGE: May 03, 2018 DIAGNOSES ON THIS HOSPITALIZATION: 1. Right superior pelvic ramus fracture. 2. Hypertension. 3. Hyperlipidemia. SUMMARIZATION OF ADMISSION HISTORY AND PHYSICAL: This is an 87-year-old female who the day before her hospitalization had a fall in front of her house when she landed on her buttocks on the pavement. Some people stopped and helped to get her up and it was a little bit painful to walk into the house but it got progressively worse over the next day or so prompting her family to bring her to the emergency room for an evaluation where she was noted to have a pelvic fracture. HOSPITAL COURSE: She was admitted. As this is not a fracture that would be treated surgically, she will be transferred to [facility] care for outpatient physical therapy. CONDITION ON DISCHARGE: She was discharged to [facility] in improved condition. MEDICATIONS ON DISCHARGE: 1. Aspirin 81 mg daily. 2. Atorvastatin 80 mg p.o. daily. 3. Os-Low D 1 p.o. daily. 4. Flexeril 5 mg p.o. q.i.d. p.r.n. pain. 5. Vitamin D 50,000 units weekly. 6. Lasix 20 mg daily. 7. Lisinopril 20 mg daily. 8. Metoprolol succinate 75 mg daily. 9. Tramadol 50 mg p.o. every 6 hours p.r.n. pain. 10. MiraLAX will be given at 17 grams p.o. daily p.r.n. DISCHARGE INSTRUCTIONS: Occupational therapy and physical therapy consults were written. OZIEL
== END 2018-05-03 17:50 | DRG 536 ==
LOC: ED 06:03 → SOUTH 09:06
PROVIDERS: ADMIT Family Medicine; ATTEND Family Medicine
DX: S32.89XA Fracture of other parts of pelvis, initial encounter for closed fracture (principal); E86.0 Dehydration; I10 Essential (primary) hypertension; E78.5 Hyperlipidemia, unspecified
CPT/HCPCS: 36415; 72100; 72131; 72170; 73502; 80053; 85025; 97110; 97116; 97165; 97535; J1650; J3010; J7030; 96360; 96372; 96375; 99222; 99238